=== PATIENT | female | born 1965 | race Caucasian/White ===

== ENCOUNTER 2017-08-08 15:35 | Emergency (ER) | payer OTHER ==
[~2017-08-08] VITALS: Ht 165.1 cm; Wt 75.0 kg
[~2017-08-08 15:35] MED LIST: CLON0.5T PO; ESCI10TA PO; ESCI20TA10; LEVO50TA PO; LEVO75TA PO; LEVO88TA2 PO; QUET100T4; QUET300T PO; TOPI100T8 PO; WARF5TAB PO
[2017-08-08] MEDS ORDERED: ASPIRIN 81 MG TABLET CHEW PO ONE (16:00)
[2017-08-08] MEDS ORDERED: ONDANSETRON 2MG/ML, 2ML IVPush ONE (16:00)
[2017-08-08] MEDS ORDERED: SODIUM CHLORIDE FLUSH 10ML SYR IVF ONE (16:00)
[2017-08-08] MEDS ORDERED: SODIUM CHLORIDE 0.9% 1,000ML IVBOLUS ONE (16:00)
[2017-08-08] MEDS ORDERED: ONDANSETRON 2MG/ML, 2ML ONE (16:04)
[2017-08-08] MEDS ORDERED: ASPIRIN 81 MG TABLET CHEW ONE (16:04)
[2017-08-08 16:14] LABS: HEMATOCRIT 42.1 % (34.6-47.8); HEMOGLOBIN 14.3 g/dL (11.7-16.4); WHITE BLOOD COUNT 12.7 x10^3/uL (3.4-10)
[2017-08-08 16:22] LABS: ASPARTATE AMINO TRANSFERASE 12 U/L (15-37); BLOOD UREA NITROGEN 21 mg/dL (7-18)
[2017-08-08 16:27] LABS: IS PT STATUS REG ER OR PRE ER? YES
[2017-08-08 19:24] LABS: IS PT STATUS REG ER OR PRE ER? YES
[2017-08-08] MEDS ORDERED: KETOROLAC 30 MG/1 ML IVPush ONE (19:30)
[2017-08-08] MEDS ORDERED: MORPHINE SULFATE 4 MG/ML, 1ML IVPush PRN (19:30)
[2017-08-08] MEDS ORDERED: KETOROLAC 30 MG/1 ML ONE (19:43)
[2017-08-08 19:52] VITALS: BP 137/81
== END 2017-08-08 20:01 | disposition home or self-care (01) ==
LOC: ED 16:21
DX: R07.89 Other chest pain (principal); E03.9 Hypothyroidism, unspecified; Z86.711 Personal history of pulmonary embolism
CPT/HCPCS: 36415; 71010; 80053; 81003; 83880; 84484; 85025; 85379; 85610; 93005; 96361; 96374; 96375; 99285; J1885; J2405; J7030

== ENCOUNTER → 2018-08-24 | Outpatient (CLI) | payer OTHER | END | disposition home or self-care (01) | LOC: CFH 08:15 | PROVIDERS: ATTEND Family Medicine | DX: Z13.820 Encounter for screening for osteoporosis (principal); M85.88 Other specified disorders of bone density and structure, other site | CPT/HCPCS: 77080 ==

== ENCOUNTER 2021-07-11 12:27 | Emergency (ER) | payer OTHER ==
[~2021-07-11] VITALS: Ht 170.2 cm; Wt 81.2 kg
[~2021-07-11 12:27] MED LIST changes: -ESCI10TA PO; +ESCI10TA97 PO; -QUET300T PO; +QUET300T2 PO; -WARF5TAB PO; +WARF5TAB2 PO
[2021-07-11 13:28] LABS: BASOPHILS % (AUTO) 1 % (0-1); EOSINOPHILS % (AUTO) 2 % (1-7); LYMPHOCYTES % (AUTO) 27 % (22-44); MEAN CORPUSCULAR HEMOGLOBIN 30.5 pg (27.0-34.8); MEAN PLATELET VOLUME 8.2 fL (7.4-10.4); MONOCYTES % (AUTO) 10 % (2-9); NEUTROPHILS % (AUTO) 60 % (42-75); PLATELET COUNT 261 x10^3/uL (130-400); RED BLOOD COUNT 4.06 x10^6/uL (3.82-5.3); RED CELL DISTRIBUTION WIDTH 14.3 % (9.6-15.2)
[2021-07-11 13:38] LABS: ALANINE AMINOTRANSFERASE 32 U/L (12-78); ALBUMIN 3.1 g/dL (3.4-5.0); ANION GAP 10 mmol/L (5-15); CALCIUM 9.1 mg/dL (8.5-10.1); CHLORIDE 102 mmol/L (98-107)
[2021-07-11 13:41] LABS: ALKALINE PHOSPHATASE 52 U/L (45-117); BILIRUBIN,TOTAL 0.3 mg/dL (0.2-1.0); CREATININE 0.79 mg/dL (0.55-1.02); TOTAL PROTEIN 7.2 g/dL (6.4-8.2)
--- NOTE | 2021-07-11 17:10 | NUR ---
Pt from lobby to room at this time. Assumed care of patient at this time. This is 55 yo female who presents to the c/o
--- NOTE | 2021-07-11 17:28 | NUR ---
called [facility] for stat luis miguel
[2021-07-11 17:49] LABS: HCT (SEDRATE) 36.9 % (34.6-47.8)
--- NOTE | 2021-07-11 18:30 | NUR ---
Pt up to restroom. Steady upon ambulation to restroom and back to [facility]. Urine sample obtained and sent to lab at this time.
[2021-07-11 18:52] LABS: MICROSCOPIC NOT IND
--- NOTE | 2021-07-11 19:40 | NUR ---
ERMD Sahm at bedside for eval.
--- NOTE | 2021-07-11 20:04 | NUR ---
TASK RN: FIDEL, RN COLLECTED COVID SWAB AND WALKED TO LAB PRIOR TO D/C. PT. AMBUALTES WITH STEADY GAIT. NO DISTRESS NOTED.
[2021-07-11 20:05] VITALS: BP 128/70
== END 2021-07-11 20:18 | disposition home or self-care (01) ==
LOC: ED 20:15
DX: R50.9 Fever, unspecified (principal); Z20.822 Contact with and (suspected) exposure to COVID-19; E03.9 Hypothyroidism, unspecified
CPT/HCPCS: 36415; 71045; 80053; 81003; 83690; 85025; 85651; 87040; 93922; 99285; U0003; U0005